=== PATIENT | female | born 1975 | race Caucasian/White ===

== ENCOUNTER 2022-09-11 16:29 | Emergency (ER) | payer OTHER, SELFPAY ==
[2022-09-11 16:45] VITALS: BP 120/67; PULSE 72; RESP 18; TEMP 36.3; O2SAT 100
--- NOTE | 2022-09-11 17:38 | ED.GENADULT ---
HPI - General Adult General Chief complaint: Upper Respiratory Infection Stated complaint: Cough,Sore Throat,Congestion Time Seen by Provider: 09/11/22 17:38 Source: patient Mode of arrival: ambulatory Limitations: no limitations History of Present Illness HPI narrative: 47-year-old female patient presents to [facility] with complaints of cold-like symptoms for the past 4 days. Patient states she has had a runny nose, congestion, chest congestion a slight cough typical of the back the throat and eye discharge and redness. Denies fevers, body aches or chills. Denies any abdominal pain, nausea, vomiting or diarrhea. Patient states she has been vaccinated for influenza and COVID. Related Data Home Medications Medication Instructions Recorded Confirmed apixaban 5 mg tablet (Eliquis) 5 mg PO DAILY 09/11/22 09/11/22 bupropion HCl 150 mg tablet,12 hr 150 mg PO BID 09/11/22 09/11/22 sustained-release clonidine HCl 0.1 mg 0.1 mg PO DAILY 09/11/22 09/11/22 tablet,extended release,12 hr dextroamphetamine-amphetamine ER 20 mg PO DAILY 09/11/22 09/11/22 20 mg 24hr capsule,extend release (Adderall XR) digoxin 125 mcg (0.125 mg) tablet 125 mcg PO DAILY 09/11/22 09/11/22 dofetilide 250 mcg capsule 250 mcg PO BID 09/11/22 09/11/22 furosemide 20 mg tablet 20 mg PO PRN PRN Edema 09/11/22 09/11/22 lamotrigine 200 mg tablet 200 mg PO DAILY 09/11/22 09/11/22 lorazepam 2 mg tablet 2 mg PO DAILY 09/11/22 09/11/22 medroxyprogesterone 10 mg tablet 10 mg PO BID 09/11/22 09/11/22 metoprolol succinate 25 mg 50 mg PO DAILY 09/11/22 09/11/22 tablet,extended release 24 hr naltrexone 50 mg tablet 50 mg PO DAILY 09/11/22 09/11/22 venlafaxine 75 mg capsule,extended 225 mg PO DAILY 09/11/22 09/11/22 release 24 hr Allergies Allergy/AdvReac Type Severity Reaction Status Date / Time No Known Allergies Allergy Verified 09/11/22 16:59 Review of Systems Review of Systems: CONSTITUTIONAL: Denies fever, chills, or sweats. EYES: Denies visual changes, positive bilateral redness, with clear discharge. ENT: Positive rhinorrhea, congestion, denies sore throat, or otalgia. CARDIOVASCULAR: Denies chest pain, palpitations, or edema. RESPIRATORY: Denies cough or dyspnea. GASTROINTESTINAL: Denies abdominal pain, nausea, vomiting, or diarrhea. GENITOURINARY: Denies dysuria or hematuria. SKIN: Denies rash or itching. MUSCULOSKELETAL: Denies back pain, joint pain, or myalgia. NEUROLOGIC: Denies headache, numbness, or weakness. PSYCHIATRIC: Denies anxiety or depression. Exam Narrative: GENERAL: Well-appearing, well-nourished, and in no acute distress. HEAD: Normocephalic, atraumatic. EYES: PERRLA and EOMI. patient has redness noted to bilateral sclera. There is slight clear discharge coming from bilateral inner canthi it is. No obvious hordeolum noted to upper or lower lids. ENT: Nares With erythema edema noted bilaterally, no rhinorrhea or epistaxis. Mucous membranes moist. posterior pharynx with no erythema, tonsillar enlargement, exudates or lesions present. NECK: Supple. No lymphadenopathy CHEST: Clear to auscultation. No respiratory distress. HEART: Regular rate and rhythm. No murmur heard. Normal peripheral pulses. ABDOMEN: Soft, nontender, nondistended, normal active bowel sounds. EXTREMITIES: Normal range of motion. No edema. SKIN: Warm, dry, no rash. NEURO: No focal deficits. Alert and oriented x3. Course Course Level of Care: Express Care Visit Vital Signs Vital signs: Vital Signs Temperature 36.3 C L 09/11/22 16:45 Pulse Rate 72 09/11/22 16:45 Respiratory Rate 18 09/11/22 16:45 Blood Pressure 120/67 09/11/22 16:45 Pulse Oximetry 100 09/11/22 16:45 Oxygen Delivery Room Air 09/11/22 16:45 Temperature 36.3 C L 09/11/22 16:45 Pulse Rate 72 09/11/22 16:45 Respiratory Rate 18 09/11/22 16:45 Blood Pressure 120/67 09/11/22 16:45 Pulse Oximetry 100 09/11/22 16:45 Oxygen Delivery Room Air 1
== END 2022-09-11 18:10 | disposition home or self-care (01) ==
PROVIDERS: Emergency Provider Nurse Practitioner Family
DX: H10.33 Unspecified acute conjunctivitis, bilateral (principal); J06.9 Acute upper respiratory infection, unspecified
CPT/HCPCS: 99203; G0463

== ENCOUNTER 2023-03-03 04:19 | Day surgery (SDC) | payer OTHER, SELFPAY ==
[2023-02-27 11:38] VITALS: BMI 36.0
--- NOTE | 2023-02-27 11:46 | PC.NURSE ---
Report to the Outpatient Waiting Room, entrance under the green pavilion located off [facility], at time 6:00 on date 03/03/23. Planned Procedure Time: 7:30. Time changes happen often and if your time is changed the preop area will call you the afternoon before. - You and your visitor will be asked to self-screen and do not enter if you have any COVID symptoms. - A mask is optional within the hospital at this time. Patients may have clear liquids (water, carbonated beverages, clear teas, apple juice) until 3 hours prior to surgery (4:30) with a maximum of 20 ounces. - No food from midnight until time of surgery Take the following medications with a SIP of water the morning of surgery: BUPROPION, CLONIDINE, DOFETILIDE, METOPROLOL, CONTRAVE, VENLAFAXINE DO NOT STOP ANY OF YOUR OTHER PRESCRIPTION MEDICATIONS PRIOR TO SURGERY?EXCEPT THE FOLLOWING Medications to discontinue per physician: ELIQUIS Date to take last dose: 66 PM (PER PT) Please no make-up, nail kinyarwanda, hairspray, perfume, deodorant, or body powder the day of surgery. No jewelry (including any body piercings) or valuables the day of surgery, leave them at home. Please take a shower or bath the night before, or the morning of, surgery with an antibacterial soap. Wear comfortable, loose fitting clothing. - Jewelry must be removed prior to entering the operating room. Rings and piercings that are not removed may be cut off. - The hospital will not accept responsibility for valuables. - Please leave all valuables, including medications, at home the day of surgery. If you are going home after surgery, a licensed utility worker driver must drive you home. - NO public transportation without another adult if you receive anesthesia. - We recommend that an adult stay with you for 24 hours following discharge. - We also recommend that you do not drive, make important decision, drink alcoholic beverages, or take any drugs that were not prescribed by your health care provider for at least 24 hours after your discharge time. Follow any additional instructions given to you from your surgeon. If you or anyone in your household have experienced Covid symptoms in the past week, please notify your surgeon or the nurse liaison at the phone number below for possible testing. Telephone instructions given to PT - SUSIE MADSEN and asked if any additional questions and then verbalized understanding. Patient advised to call surgeon office or pre surgery nurse liaison [phone] if any additional questions.
--- NOTE | 2023-03-02 14:37 | P.PNAN_ITS ---
Anes - Initial Pre Proc Eval Procedure: Operation Date: 03/03/23 07:30 Proposed Procedures p Lapidus Bunionectomy Right Foot - Gene Taveras JR, MD s Ovidio Phalangeal Osteotomy Right Hallux,Ava Shortening Second Metatarsal Osteotomy Right Foot - Gene Taveras JR, MD Date/Time: 03/02/23 14:37 Surgeon: Gene Taveras JR, MD Pre Op Diagnosis: Bunion Rt Ft, Metatarsalgia Rt Ft Patient Data Age: 47 Gender: F Height: 1.57 m Weight: 89.4 kg Allergies Allergy/AdvReac Type Severity Reaction Status Date / Time No Known Allergies Allergy Verified 02/27/23 11:34 Home Medications Medication Instructions Recorded Confirmed Type apixaban 5 mg tablet (Eliquis) 5 mg PO DAILY 09/11/22 02/27/23 History clonidine HCl 0.1 mg 0.1 mg PO DAILY 09/11/22 02/27/23 History tablet,extended release,12 hr dextroamphetamine-amphetamine ER 20 mg PO DAILY 09/11/22 02/27/23 History 20 mg 24hr capsule,extend release (Adderall XR) dofetilide 250 mcg capsule 250 mcg PO BID 09/11/22 02/27/23 History furosemide 20 mg tablet 20 mg PO PRN PRN Edema 09/11/22 02/27/23 History medroxyprogesterone 10 mg tablet 10 mg PO BID 09/11/22 02/27/23 History metoprolol succinate 25 mg 50 mg PO DAILY 09/11/22 02/27/23 History tablet,extended release 24 hr venlafaxine 75 mg capsule,extended 225 mg PO DAILY 09/11/22 02/27/23 History release 24 hr bupropion HCl 75 mg tablet 75 mg PO DAILY 02/27/23 02/27/23 History naltrexone 8 mg-bupropion 90 mg 2 tablet PO BID 02/27/23 02/27/23 History tablet,extended release (Contrave) Patient hx anesthesia problems: none Family hx anesthesia problems: none Results Review: All pre-operative results and documents have been reviewed as part of the pre- operative evaluation. [facility] Past Medical History Medical History (Updated 03/03/23 @ 06:49 by Hemal Ferrera MD) Anxiety Depression Hypertrophic cardiomyopathy Obesity Paroxysmal A-fib Surgical History Surgical History (Updated 03/02/23 @ 14:39 by Hemal Ferrera MD) AICD (automatic cardioverter/defibrillator) present Social History Social History Smoking packs per day: 0.5 Smoking cigarettes per day: 10.0 Years smoked: 20 Smoking pack-years: 10.00 Smoking status: Former smoker Tobacco type: cigarettes Smoking end date: 09/25/19 Alcohol intake: former Alcohol use details: QUIT 2013 Substance use: never Substance use type: does not use Living arrangements: alone Spiritual care concerns: No Anes - Eval Final PreProcedure Day of Procedure 03/02/23 14:37 Patient weight: obese Heart: regular rate and rhythm Lungs: clear to auscultation and normal air movement Airway: Mallampati scale class II Neurological: alert and oriented Last oral intake: >/= 8 hours ASA classification: IV Emergent: no Anesthetic plan: proceed Anesthesia type and monitoring: general GIVS Results Review: All pre-operative results and documents have been reviewed as part of the pre- operative evaluation. Informed Consent: The patient's anesthetic plan and its attendant risks and benefits were discussed with the patient/family/POA. Questions were solicited and answers provided to the satisfaction of the patient/family/POA.
--- NOTE | 2023-03-02 14:49 | WPDANESPNB ---
Anes - Peripheral Nerve Block Date/Time: 03/02/23 14:49 I have discussed with the patient/family/POA the placement of a peripheral nerve block for post-operative pain management, including associated risks, benefits, complications, and side effects. Alternative methods of post-operative analgesia were detailed. Questions were solicited and answers provided to the satisfaction of the patient/family/POA. Time-Out: A pre-procedural Time-Out was completed immediately before starting the procedure and confirmed: Patient Identification, Site, Procedure, Patient Position and the Availability of Requisite Equipment. Clinical Indications: Acute post-operative pain management requested by the operative surgeon. Nerve Block Insertion Note Anes-nerve block: posterior fossa sciatic (20cc) right Patient position: supine Skin prep: chlorhexidine Needle: 22 gauge, stimulating, insulated echogenic needle. Needle length: 80 mm Technique: ultrasound (in plane) Injectate: bupivacaine 0.25% with epi 5 mcg/ml (20cc) Observations: tolerated well Complications: none Procedure start time:: 720 Procedure end time:: 725
[2023-03-03] VITALS (7 sets, daily range): BP systolic 91–111; BP diastolic 47–71; PULSE 69–71; RESP 14–17; TEMP 36.7–36.8; O2SAT 98–100
--- NOTE | ~2023-03-03 | XR_ITS ---
XR surgery orthopedic DATE: 03/03/2023 08:49 INDICATION: Right foot bunion hallux osteotomy fusion TECHNIQUE: 21 seconds total exposure time 2.7615 cGycm2 total DAP 2. Spot C-arm exposures COMPARISON: None FINDINGS: Plate and screws are noted bridging the medial cuneiform and proximal shaft of the first me tatarsal bone, with a lag screw extending from the base of the first metatarsal area in the cuneiform area. There is a staple at an osteotomy of the proximal phalanx of the first digit. There are 2 screws through the neck of the second metatarsal bone. IMPRESSION: Postoperative changes Reviewed, dictated and finalized at [facility]. Reviewed, dictated and finalized at location [] IMPRESSION: Postoperative changes
--- NOTE | 2023-03-03 07:11 | WPDHPUPDATE1 ---
History and Physical Update Update Date/Time: 03/03/23 07:11 History and Physical has been reviewed, including an updated exam of the patient. There are NO changes in the patient's condition. Risks, benefits, and alternatives have been discussed and questions answered. Patient agrees to proceed with procedure.
[2023-03-03] MEDS: LACTATED RINGERS 1,000 ML 30 ML IV CONT ×2 (07:23→09:17)
[2023-03-03] MEDS: ceFAZolin 2 GM/D5W 50 ML 2 GM/50 ML BAG IVPB (07:26)
--- NOTE | 2023-03-03 09:11 | W.PM.PROC2 ---
Procedure Note - Detailed Date of Procedure 03/03/23 Pre-op Diagnosis Bunion deformity right foot Metatarsalgia right foot Post-op Diagnosis Same Procedure Performed 1. Lapidus bunionectomy right foot 2. Ovidio phalangeal osteotomy right hallux 3. Ava shortening second metatarsal osteotomy right hallux Surgeon Gene Taveras JR, JANET Anesthesia General and Regional Indications Painful bunion right foot Description of Procedure Under mild sedation, the patient was brought to the operating room, placed on the operating table in the supine position. A pneumatic ankle tourniquet was placed about the patient's ankle. Following general anesthesia and a previous popliteal fossa block, the foot was then scrubbed, prepped, and draped in the usual aseptic manner. An Esmarch bandage was then used to examine the patient's foot and pneumatic ankle tourniquet was then inflated. Surgery began in the following manner. Attention was directed to the dorsal aspect of the 1st metatarsocuneiform of the foot where fluoroscopy was used to identify the joint. A 3 cm incision was made overlying the dorsal aspect of the 1st metatarsocuneiform joint of the foot just medial to the extensor hallucis longus tendon. The incision was then continued deep down through the subcutaneous tissues using sharp and blunt dissection. All bleeders were ligated and cauterized as necessary. At this point, the extensor tendon was identified and reflected laterally. Next, the periosteum and capsular incision was made at the full length of the skin incision exposing the medial cuneiform as well as the base of the 1st metatarsal. Next, a sagittal bone saw was introduced from dorsal to plantar across the 1st metatarsocuneiform joint in order to free up any ankylosed portions of the joint and also to release any adhesions. Two Steinmann Pins were driven from dorsal to plantar 1cm proximal and distal to the 1st metatarsal cuneiform joint. The provided curved osteotome and curette was used to resect the cartilage and subchondral bone and a 2.0mm drill bit was used to fenestrate the joint to promote fusion. At this point, a small 2 cm incision was made along the lateral aspect of the 1st metatarsophalangeal joint of the right foot and a lateral release consisting of a lateral capsule incision as well as release of the adductor hallucis tendon with the tenotomy as well as releasing the distal aspect and lateral aspect and proximal aspect of the fibular sesamoid. After this, a lateral release was performed. The hallux was noted to be slightly reduced as far as the track-bound hallux. A 3m incision was made medial to the first metatarsal head extending proximal to the proximal phalanx. A 1.4mm Steinmann pin was driven from medial to lateral across the 1st metatarsal head. Next the Lapifuse positioner was used to obtain 3 plane correction of the hallux abductovalgus deformity. Fluoroscopy was used to make sure that the 1st MPJ was congruous and the sesamoid apparatus was centered under the first metatarsal the first metatarsal was parallel with the second metatarsal. Next a 4mm cannulated screw was driven from the medial base of the 1st metatarsal to the central and lateral cuneiform bone. Excellent compression was noted, next a Lapifuse plate was placed dorsal medially along the 1st metatarsal cuneiform joint and 4 locking screws was used to further compress the joint to ensure arthrodesis. At this point the positioner was removed and fluoroscopy was used to make sure that deformity correction was maintained. The patient still had slight hallux abductus so I made a closing medial base wedge resection from the base of the proximal phalanx and compressed the osteotomy with a Eximia 8mm nitinol compression staple. After the Ovidio osteotomy the hallux was noted to be in a rectus position. The periosteum and capsular structures were reapproximated and coapted utilizing horizon
== END 2023-03-03 10:29 | disposition home or self-care (01) ==
PROVIDERS: Visit Provider Podiatrist Foot & Ankle Surgery
PROC: (CPT 28299; principal; 2023-03-03 07:30)
PROC: (CPT 28750; 2023-03-03 07:30)
DX: M21.611 Bunion of right foot (principal); M77.41 Metatarsalgia, right foot; G89.18 Other acute postprocedural pain; I48.0 Paroxysmal atrial fibrillation; I42.2 Other hypertrophic cardiomyopathy; F41.9 Anxiety disorder, unspecified; F32.A Depression, unspecified; E66.9 Obesity, unspecified; Z68.36 Body mass index [BMI] 36.0-36.9, adult; Z79.01 Long term (current) use of anticoagulants; Z87.891 Personal history of nicotine dependence; Z95.810 Presence of automatic (implantable) cardiac defibrillator
CPT/HCPCS: 28298; 64445; 36415; 80048; 99199; C1713; J0690; J1100; J2250; J2405; J2704; J3010; J7120

== ENCOUNTER 2025-09-06 23:13 | Emergency (ER) | payer OTHER, SELFPAY ==
--- NOTE | ~2025-09-06 | XR_ITS ---
Examination: XR chest 1V portable Clinical History: defib firing Comparison: None Technique: Portable AP Findings: Left ICD. Heart size upper limit of normal. Lungs clear. No acute bony abnormality. IMPRESSION: 1. No acute cardiopulmonary findings given portable technique. Reviewed, dictated and finalized at location R. MANAGER
[2025-09-06 23:23] VITALS: BP 118/74; PULSE 75; RESP 14; RESP 15; O2SAT 100
--- NOTE | 2025-09-06 23:25 | ECG_ITS ---
Test Date: 2025-09-07 00:17:01 Measurements Intervals Forbes Rate: 69 P: 160 MT: 216 QRS: -29 QRSD: 138 T: 5 QT: 448 QTc: 483 Interpretive Statements ELECTRONIC ATRIAL PACEMAKER RIGHT BUNDLE BRANCH BLOCK CONSIDER HIGH LATERAL INFARCT, AGE INDETERMINATE CANNOT R/O SEPTAL INFARCT, AGE INDETERMINATE BASELINE ARTIFACT- I, II, III, AVR, AVL, AVF ABNORMAL ECG No previous ECG available for comparison Electronically Signed On 09-07-2025 09:23:19 [employer] by Cristobal Rausch D.O.
[2025-09-06 23:30] VITALS: BP 133/85; PULSE 76; RESP 13; O2SAT 100
--- NOTE | 2025-09-06 23:40 | ED.GENADULT ---
HPI - General Adult General Chief complaint: Unspecified Stated complaint: rick went off x2 Time Seen by Provider: 09/06/25 23:23 History of Present Illness HPI narrative: 50-year-old female with a history of hypertrophic cardiomyopathy status post AICD placement presenting to the emergency department today after her defibrillator fired 2 times. Patient is currently asymptomatic but states prior to the onset of her symptoms she felt very warm and flushed, heart racing sensations and lightheaded. She received 2 shocks from her defibrillator and then symptoms resolved. She did not lose consciousness. She denies any chest pain, shortness a breath, vision changes, headache, dizziness or syncope. No chest pain or chest tightness or any anginal equivalents prior to the symptoms onset. Has never had defibrillation events prior. Has had battery changed 1 time as she has had the defibrillator over 13 years. 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 Follows with them regular every 6 months. No recent changes to medications. Was otherwise in her normal state of health. There are acute stressors at home including her mother's passing acutely on hospice care and she was given her mother morphine throughout the day today prior to the onset of symptoms and defibrillation events so potentially related to high stress/cathecholamine surge. Related Data Home Medications ?Medication ?Instructions ?Recorded ?Confirmed ?Last Taken ?Type apixaban 5 mg tablet (Eliquis) 5 mg PO DAILY 09/11/22 03/03/23 02/28/23 History clonidine HCl 0.1 mg 0.1 mg PO DAILY 09/11/22 03/03/23 03/03/23 History tablet,extended release,12 hr dextroamphetamine-amphetamine ER 20 mg PO DAILY 09/11/22 02/27/23 Unknown History 20 mg 24hr capsule,extend release (Adderall XR) dofetilide 250 mcg capsule 250 mcg PO BID 09/11/22 03/03/23 03/03/23 History furosemide 20 mg tablet 20 mg PO PRN PRN Edema 09/11/22 03/03/23 03/03/23 History medroxyprogesterone 10 mg tablet 10 mg PO BID 09/11/22 02/27/23 Unknown History metoprolol succinate 25 mg 50 mg PO DAILY 09/11/22 03/03/23 03/03/23 History tablet,extended release 24 hr venlafaxine 75 mg capsule,extended 225 mg PO DAILY 09/11/22 03/03/23 03/03/23 History release 24 hr bupropion HCl 75 mg tablet 75 mg PO DAILY 02/27/23 03/03/23 03/03/23 History naltrexone 8 mg-bupropion 90 mg 2 tablet PO BID 02/27/23 02/27/23 Unknown History tablet,extended release (Contrave) Allergies Allergy/AdvReac Type Severity Reaction Status Date / Time No Known Allergies Allergy Verified 09/06/25 23:13 Review of Systems Review of Systems: as reviewed above in HPI All systems reviewed & are unremarkable except as noted in HPI and below PMFSH Past Medical History Medical History Hypertrophic cardiomyopathy Obesity Depression Anxiety Paroxysmal A-fib Surgical History Surgical History AICD (automatic cardioverter/defibrillator) present Social History Social History Smoking packs per day: 0.5 Smoking cigarettes per day: 10.0 Years smoked: 20 Smoking pack-years: 10.00 Smoking status: Former smoker Tobacco type: cigarettes Smoking end date: 09/25/19 Alcohol intake: former Alcohol use details: QUIT 2013 Substance use: never Substance use type: does not use Living arrangements: alone Spiritual care concerns: No Exam Narrative: GENERAL: [Well-appearing, well-nourished, and in no acute distress.] HEAD: [Normocephalic, atraumatic.] EYES: [PERRLA and EOMI.] ENT: Nares clear, no rhinorrhea or epistaxis. Mucous membranes moist. NECK: Supple. CHEST: [Clear to auscultation. No respiratory distress.] HEART: [Regular rate and rhythm]. No murmur heard. [Normal peripheral pulses.] ABDOMEN: [Soft, nondistended], [nontender], [No rigidity or guarding] EXTREMITIES: Normal range of motion. [No edema.] SKIN: Warm, dry, no rash. NEURO: [No focal deficits]. Alert and oriented [x3.] PSYCH: [Normal mood and affect.] Course Vital Signs Vital signs: Vital Signs Pulse Rate 75 09/06/25 23:23 Respiratory Rate 14 09/06/25 23:23 Blood Pressure 118/74 09/06/25 23:23 Pulse Oximetry 100 09/06/25 23:23 Oxygen Delivery Room Air 09/06/25 23:23 Pulse Rate 74 09/07/25 01:31 Respiratory Rate 11 L 09/07/25 01:31 Blood Pressure 96/59 L 09/07/25 01:31 Pulse Oximetry 100 09/07/25 01:31 Oxygen Delivery Room Air 09/06/25 23:23 MDM MDM Narrative Medical decision making narrative: 50-year-old female with a history of hypertrophic cardiomyopathy status post AICD placement presenting to the emergency department today after her defibrillator fired 2 times. Patient is currently asymptomatic but states prior to the onset of her symptoms she felt very warm and flushed, heart racing sensations and lightheaded. She received 2 shocks from her defibrillator and then symptoms resolved. She did not lose consciousness. She denies any chest pain, shortness a breath, vision changes, headache, dizziness or syncope. No chest pain or chest tightness or any anginal equivalents prior to the symptoms onset. Has never had defibrillation events prior. Has had battery changed 1 time as she has had the defibrillator over 13 years. 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 Follows with them regular every 6 months. No recent changes to medications. Was otherwise in her normal state of health. There are acute stressors at home including her mother's passing acutely on hospice care and she was given her mother morphine throughout the day today prior to the onset of symptoms and defibrillation events so potentially related to high stress/cathecholamine surge. patient is hemodynamically stable. Unremarkable vital signs. Strong symmetric pulses. Clear breath sounds. Potential her defibrillator fired secondary to cardiac event such as dysrhythmia verses malfunction of the device versus catecholamine surge from high stressor event given her mother's passing at home actively. Will interrogate the device which is a [employer] and obtain cardiac workup and labs. Placed on school lunch monitor and frequently re-evaluated. Interrogation report from [employer] shows that patient received 2 shocks for successful defibrillation of rapid VFib / V-tach and heart rate between 154 and 200. Patient has had no further symptoms while here in the emergency department. Labs show no leukocytosis significantly or any anemia. Normal electrolytes. Negative troponin. Patient remains hemodynamically stable and asymptomatic during her stay in the emergency department. Initial plan was to admit the patient or transfer the patient for EP or cardiology evaluation for the defibrillation event but patient is adamant that she needs to go home and continue caring for her actively dying mother. I did reach out to the [facility] transfer group and requested a consult with electrophysiology. I was connected with the physician over the phone Dr. Carrera and we discussed patient's case, the social factors including preclusion of her being transferred or admitted at this time as well as her current medications and options going forward. Given that patient has been asymptomatic since the events and the defibrillator has been firing and working as intended without any obvious findings we did discuss that patient would benefit from a transfer to be switched from dofetilide to another anti dysrhythmic or other medication titration but again patient declines to do this acutely and in that case cardiology current recommendations are to increase metoprolol with additional 25 mg to her current regimen and have her have close follow-up unless there is a recurrent event or new changes and then she should be brought in admitted/transferred. I relayed these recommendations to the patient including again reiterating that she would benefit from admission and transfer for evaluation and titration of her medications in real-time but patient again expressed desire to go home to her dying mother. She was agreeable to increase her metoprolol dose and we discussed dosing to take to include b.i.d. dosing metoprolol at this time. Patient has already taken her evening dose of medications and should continue starting them tomorrow morning. We gave her very strict return precautions including any recurrent defibrillation events, chest pain, symptoms of any kind and she should return for further evaluation which she verbalized understanding and did understand the risks of going home rather than being transferred. Ultimately this is shared decision-making. Patient will be sent home at this time with these changes and precautions in mind. Differential Diagnosis Differential Diagnosis: Potential her defibrillator fired secondary to cardiac event such as dysrhythmia verses malfunction of the device versus catecholamine surge from high stressor event given her mother's passing at home actively. Lab Data MDM Lab Attestation statement: I personally reviewed the patient's lab results. 09/07/25 00:15 09/07/25 00:15 Labs: Lab Results 09/06/25 09/07/25 Range/Units 23:43 00:15 WBC 11.1 H (4.5-10.0) K/mm3 RBC 4.96 (4.2-5.4) M/mm3 Hgb 15.1 H (12.0-15.0) g/dL Hct 46.5 (37.0-47.0) % MCV 93.8 (80-100) fl MCH 30.4 (26-34) pg MCHC 32.5 (32-36) g/dl RDW 13.4 (11.5-14.5) % Plt Count 225 (150-375) k/mm3 MPV 10.1 (7.4-10.4) fl Immature Gran % (Auto) 0.3 (0-0.5) % Neut % (Auto) 75.5 H (45.5-73.1) % Lymph % (Auto) 15.3 L (18.3-44.2) % [place] % (Auto) 7.8 (2.6-8.5) % Eos % (Auto) 0.6 (0-4.4) % Baso % (Auto) 0.5 (0.2-1.2) % Lymph # (Auto) 1.70 (0.9-3.2) K/mm3 [place] # (Auto) 0.9 H (0.1-0.6) K/mm3 Eos # (Auto) 0.1 (0-0.3) K/mm3 Baso # (Auto) 0.1 (0.0-0.1) K/mm3 Abs Immat Gran (auto) 0.03 (0.00-0.031) K/mm3 Absolute Neuts (auto) 8.4 H (1.3-6.7) K/mm3 Absolute Nucleated RBC 0.000 (0.0-0.012) K/mm3 Nucleated RBC % 0.0 (0.0-0.2) % PT 12.2 (11.1-14.7) Seconds INR 0.9 APTT 23.5 (22.3-36.8) Seconds Sodium 139 (137-145) mmol/L Potassium 3.9 (3.4-5.0) mmol/L Chloride 108 H (98-107) mmol/L Carbon Dioxide 24 (22-30) mmol/L Anion Gap 7 (4-12) mmol/L BUN 10 (7-17) mg/dL Creatinine 0.71 (0.7-1.0) mg/dL Estim Creat Clear Calc 76 ml/min Estimated GFR > 60 (59 - ) Glucose 89 (65-110) mg/dL Calcium 9.1 (8.4-10.2) mg/dL Magnesium 2.5 H (1.6-2.3) mg/dL Total Bilirubin 0.4 (0.2-1.3) mg/dL AST 25 (14-36) U/L ALT 20 (6-35) U/L Alkaline Phosphatase 109 (38-126) U/L Troponin I 0.019 (0.000-0.034) ng/mL Total Protein 7.6 (6.3-8.2) g/dL Albumin 4.7 (3.5-5.1) g/dL Lipase 145 (23-300) U/L Critical Care Time Critical Care Time Critical Care Time: Yes Time Type: Intermittent Initial evaluation, discuss w/ involved parties, attempting to gather old records: 15 minutes Documenting medical record: 15 minutes Review of results (EKG's, labs, imaging): 5 minutes Serial repeat bedside evaluation: 10 minutes Discussing case with multiple memebers of the care team and consultants: 5 minutes Total Critical Care Time: 50 Discharge Plan Discharge Clinical Impression: AICD discharge, AICD (automatic cardioverter/defibrillator) present, V-tach Patient Disposition: Home Condition: Stable Instructions: Antibiotic Form Additional Instructions: We discussed with electrophysiology and their formal recommendations will be for transfer and evaluating you in real-time for changing her medications including potential increased doses or changing your dysrhythmic medications but given the circumstances of wanting to go home they recommended adding additional 25 metoprolol mg dose to your regimen. Increase her metoprolol dose 25 mg in the morning and continue other current medications. If you have any recurrent symptoms, discharge of the defibrillator, chest pain, loss of consciousness or any other issues please return emergently to the ER otherwise follow-up with your candy separator hard and linux unix engineer. Patient Language: Tajik Prescriptions: No Action medroxyprogesterone 10 mg tablet 10 mg PO BID venlafaxine 75 mg capsule,extended release 24hr 225 mg PO DAILY dofetilide 250 mcg capsule 250 mcg PO BID dextroamphetamine-amphetamine [Adderall XR] 20 mg capsule,extended release 24hr 20 mg PO DAILY furosemide 20 mg tablet 20 mg PO PRN PRN (Reason: Edema) metoprolol succinate 25 mg tablet extended release 24 hr 50 mg PO DAILY clonidine HCl 0.1 mg tablet extended release 12 hr 0.1 mg PO DAILY Eliquis 5 mg tablet 5 mg PO DAILY bupropion HCl 75 mg tablet 75 mg PO DAILY Contrave 8-90 mg tablet extended release 2 tablet PO BID Follow-up/Referrals: PHYSICIAN,MUTUAL FUND SALES AGENT [Primary Care Provider, Internal Medicine] Time of Disposition: 02:03
[2025-09-07] VITALS (8 sets, daily range): BP systolic 96–106; BP diastolic 53–63; PULSE 70–76; RESP 11–17; O2SAT 100
[2025-09-07 00:20] LABS: Hematocrit 46.5 % (37.0-47.0); Hemoglobin 15.1 g/dL (12.0-15.0); Immature Granulocyte Percent A 0.3 % (0-0.5); Lymphocytes Absolute Auto 1.70 K/mm3 (0.9-3.2); Mean Corpuscular HGB Conc 32.5 g/dl (32-36); Mean Corpuscular Hemoglobin 30.4 pg (26-34); Mean Corpuscular Volume 93.8 fl (80-100); Nucleated Red Blood Cells Absolute Auto 0.000 K/mm3 (0.0-0.012); Nucleated Red Blood Cells Perc 0.0 % (0.0-0.2); Platelet Count Result 225 k/mm3 (150-375); Red Blood Count 4.96 M/mm3 (4.2-5.4); White Blood Count 11.1 K/mm3 (4.5-10.0)
[2025-09-07 00:28] LABS: INR 0.9; Prothrombin Time 12.2 Seconds (11.1-14.7)
[2025-09-07 00:29] LABS: Partial Thromboplastin Time 23.5 Seconds (22.3-36.8)
[2025-09-07 00:34] LABS: Alanine Aminotransferase 20 U/L (6-35); Albumin Level 4.7 g/dL (3.5-5.1); Alkaline Phosphatase 109 U/L (38-126); Anion Gap 7 mmol/L (4-12); Aspartate Amino Transferase 25 U/L (14-36); Bilirubin,Total 0.4 mg/dL (0.2-1.3); Blood Urea Nitrogen 10 mg/dL (7-17); Calcium 9.1 mg/dL (8.4-10.2); Carbon Dioxide 24 mmol/L (22-30); Chloride 108 mmol/L (98-107); Estimated CRCL calculation 76 ml/min; Estimated Glomerular Filt Rate > 60; Glucose 89 mg/dL (65-110); Lipase 145 U/L (23-300); Potassium 3.9 mmol/L (3.4-5.0); Sodium 139 mmol/L (137-145); Total Protein 7.6 g/dL (6.3-8.2)
[2025-09-07] MEDS: ASPIRIN 81 MG CHEWABLE TABLET 324 MG PO (00:35)
[2025-09-07 00:46] LABS: Troponin I 0.019 ng/mL (0.000-0.034)
[2025-09-07 01:54] LABS: Magnesium 2.5 mg/dL (1.6-2.3)
== END 2025-09-07 02:18 | disposition home or self-care (01) ==
PROVIDERS: Emergency Provider Student in an Organized Health Care Education/Training Program
DX: I47.20 Ventricular tachycardia, unspecified (principal); I42.2 Other hypertrophic cardiomyopathy; I48.0 Paroxysmal atrial fibrillation; E66.9 Obesity, unspecified; Z68.28 Body mass index [BMI] 28.0-28.9, adult; F41.9 Anxiety disorder, unspecified; F32.A Depression, unspecified; Z87.891 Personal history of nicotine dependence; Z79.01 Long term (current) use of anticoagulants; Z79.899 Other long term (current) drug therapy; I45.10 Unspecified right bundle-branch block; R94.31 Abnormal electrocardiogram [ECG] [EKG]
CPT/HCPCS: 36415; 71045; 80053; 83690; 83735; 84484; 85025; 85610; 85730; 93005; 99284; A9270